=== PATIENT | female | born 1995 | race African-American/Black ===

== ENCOUNTER 2025-04-10 05:51 | Inpatient (IN) | payer MEDICAID ==
[~2025-04-10] VITALS: Ht 170.2 cm; Wt 68.0 kg
[2025-04-10] MEDS: MORPHINE SULFATE 4 MG/ML INJ (FOR IV/IM USE) IV ONE (07:08)
[2025-04-10 07:23] LABS: BASOPHILS % 0.7 % (0.0-2.0); EOSINOPHILS % 2.5 % (0.0-5.0); HEMATOCRIT. 33.9 % (36.0-48.0); HEMOGLOBIN. 11.7 g/dL (12.0-16.0); LYMPHOCYTES % 22.6 % (20.0-50.0); MEAN PLATELET VOLUME 7.8 fl (7.4-10.4); MONOCYTES % 11.2 % (2.0-8.0); NEUTROPHILS % 63.0 % (40.0-76.0); PLATELET 241 x1000/uL (130-400); RED BLOOD CELL COUNT 3.89 mill/uL (4.2-5.4); RED CELL DISTRIBUTION WIDTH 14.7 % (11.6-14.6)
[2025-04-10 07:40] LABS: CREATININE 0.7 mg/dL (0.6-1.0); UREA NITROGEN BLOOD 7 mg/dL (9-23)
[2025-04-10 08:00] VITALS: BP 126/75; PULSE 55; RESP 16; TEMP 36.9; O2SAT 99
[2025-04-10 08:27] LABS: HCG SCREEN NEGATIVE
[2025-04-10] MEDS ORDERED: ONDANSETRON HCL 4MG/2ML INJ IV PRN (09:30)
[2025-04-10] MEDS ORDERED: ACETAMINOPHEN 325MG TABLET PO PRN (09:30)
[2025-04-10] MEDS ORDERED: NALOXONE HCL 0.4MG/ML VIAL IV PRN (10:30)
[2025-04-10] MEDS: KETOROLAC 30MG/ML VIAL IV PRN (10:42)
[2025-04-10] MEDS: HYDROCODONE/ACETAMINOPHEN 5/325MG TABLET PO PRN (11:13)
[2025-04-10 12:00] VITALS: PULSE 65; RESP 18; TEMP 36.6; O2SAT 98
[2025-04-10 13:02] VITALS: BP 126/75; PULSE 55; RESP 16; TEMP 37.1
[2025-04-10 16:00] VITALS: BP 115/70; PULSE 60; RESP 17; TEMP 36.9; O2SAT 98
[2025-04-10 20:00] VITALS: BP 120/81; PULSE 59; RESP 19; TEMP 36.5; O2SAT 100
[2025-04-11 04:00] VITALS: BP 108/71; PULSE 65; RESP 19; TEMP 36.5; O2SAT 98
[2025-04-11 08:00] VITALS: BP 117/76; PULSE 82; RESP 18; TEMP 37; O2SAT 100
[2025-04-11 12:00] VITALS: BP 125/77; PULSE 77; RESP 18; TEMP 36.8; O2SAT 99
[2025-04-11 12:08] VITALS: BP 125/77; PULSE 77; O2SAT 98
== END 2025-04-11 12:34 | disposition home or self-care (01) | DRG 861 ==
LOC: ER 05:51 → 6EST 08:10 → EDBEDREQ 08:18 → EDBEDREQTM 08:18 → ENRESERV 08:21
PROVIDERS: ADMIT Internal Medicine; ATTEND Internal Medicine
DX: G89.18 Other acute postprocedural pain (principal); M25.571 Pain in right ankle and joints of right foot; R20.0 Anesthesia of skin; R20.2 Paresthesia of skin
CPT/HCPCS: 36415; 73610; 80048; 84703; 85025; 99285; J1885; J2270